=== PATIENT | male | born 1985 | race Caucasian/White ===

== ENCOUNTER 2023-04-15 16:36 | Emergency (ER) | payer OTHER, SELFPAY ==
[2023-04-15 16:46] VITALS: BP 153/99; PULSE 101; RESP 14; TEMP 36.1; O2SAT 94
[2023-04-15 17:43] VITALS: BP 158/85; RESP 16; O2SAT 98
--- NOTE | 2023-04-15 18:14 | EDS_ITS ---
HPI History of Present Illness Chief Complaint: Back Narrative Narrative: [id number] Antonio male presenting with back pain. He was hurrying to go downstairs yesterday and slipped losing his footing and his feet went up in the air and he landed on his back on the stairs and estimates he fell about 4 feet onto his back. No head injury or LOC. Patient had difficulty walking yesterday with antalgic gait. He complains of left-sided back pain and midline back pain. He states his hip does not hurt. No loss of bladder or bowel control. No saddle paresthesia. Patient denies any medical problems. He has tried Aleve and ice. He states he is unable to walk today [facility] Medical History no medical history Home Medications naproxen 500 mg tablet (Naprosyn) 500 mg PO BID PRN pain #20 tabs 04/15/23 [Rx Last Taken Unknown] oxycodone 5 mg tablet 5 mg PO TID PRN pain 3 days #12 tabs 04/15/23 [Rx Last Taken Unknown] Allergy/AdvReac Type Severity Reaction Status Date / Time No Known Allergies Allergy Verified 04/15/23 16:48 Social History Smoking Status: Current some day smoker tobacco type: cigars ROS ROS ED Constitutional Constitutional ED: Denies chills, fever(s) or sweats Eyes Eyes: Denies blurry vision or change in vision ENT ENT ED: Denies ear pain or sore throat Cardiovascular Cardiovascular: Denies chest pain, palpitations or racing heartbeat Respiratory/Chest Respiratory/Chest: Denies cough, dyspnea or sputum Gastrointestinal Gastrointestinal: Denies abdominal pain, constipation, diarrhea, nausea or vomiting Genitourinary Genitourinary ED: Denies dysuria, hematuria or urinary frequency Musculoskeletal Musculoskeletal: Reports back pain; Denies arthralgias, myalgias or neck pain Integumentary Denies abscess, Abrasions or rash Neurologic Neurologic: Denies headache(s), paresthesias or weakness Psychiatric Psychiatric: Denies anxiety, depression, suicidal ideation or suicidal thoughts Endocrine Endocrinology: Denies polydipsia or polyuria EXAM Physical Exam Const Vital Signs: 04/15/23 16:46 04/15/23 17:43 04/15/23 20:11 Temperature 97 F L Temperature Source Temporal Pulse Rate 101 H 86 Respiratory Rate 14 16 16 Blood Pressure 153/99 H 158/85 H 149/91 H Blood Pressure Mean 117 109 110 Pulse Ox 94 98 96 Oxygen Delivery Method Room Air Room Air 04/15/23 21:08 Temperature Temperature Source Pulse Rate 77 Respiratory Rate 18 Blood Pressure 139/86 H Blood Pressure Mean 103 Pulse Ox 96 Oxygen Delivery Method Positive well nourished General Appearance ED: NAD; Negative for pallor HEENT Reports moist mucous membranes Eyes PERRL and EOMs intact bilaterally Resp normal respiratory effort and clear to auscultation bilaterally Auscultation: Negative for rales, rhonchi or wheezes Cardio regular rate and regular rhythm GI normal to inspection, nondistended, normoactive bowel sounds Back/Spine Back/Spine Narrative: On spinal tenderness L3-L4. No midline spinal deformity or step-off. Pelvis is stable. Patient able to flex the left hip and right hip up off the bed. Neurovascular intact bilaterally in the lower extremities. Extremity normal to inspection Neuro oriented x3 and no sensory deficits noted Sensorium / Orientation: alert Motor Exam: strength 5/5 throughout Psych mental status grossly normal Skin no rashes or lesions noted General Skin Exam: Negative for jaundice or pallor MDM MDM MDM Narrative Medical decision making narrative: Patient presenting with back pain. On mechanical fall approximately 4 feet while running on the stairs and states he lost his footing catching air and then landing on his back. Differential includes back contusion, lumbar fracture, muscle strain. Patient's left hip is nontender and he is able to flex at about the bed. The right hip is also nontender and can flex distal to bed. The pelvis is stable. He has no abdominal pain. No evidence of bruising anywhere in his back. He is neurovascular intact throughout. Patient was given fentanyl and route to the ER. He will be given Toradol here and we will obtain a CT of the lumbar spine. Patient CT shows acute fracture of the left transverse process of L2. Discussed the case with Dr. Gan who said he can follow-up with him in office. Patient given oxycodone and Naprosyn for pain. Patient does not believe he needs to stay in the hospital nor does he need physical therapy. He is able to get up and ambulate although he has pain. Return precautions discussed. Impression: 1. Mechanical fall 2. L1 transverse process fracture Lab Data Attestation: I reviewed the patient's lab results. Radiography Diagnostic Testing: Clinical Impression(s) from Imaging Studies Lumbar Spine CT 04/15/23 18:30 IMPRESSION: Acute fracture of the left transverse process of L2. Electronically Signed: Nelson Boo MD at 20:13 EST , Discharge Plan Triage Chief Complaint: Back ED Provider: Xander Uribe Dx/Rx/DC Orders Clinical Impression: Lumbar transverse process fracture Instructions: ED Transverse Process Fracture Prescriptions: New oxycodone 5 mg tablet 5 mg PO TID PRN (Reason: pain) 3 Days Qty: 12 0RF naproxen [Naprosyn] 500 mg tablet 500 mg PO BID PRN (Reason: pain) Qty: 20 0RF Primary Care Provider: Care Physician,No Primary Referrals: Abdullahi Gan DO [Med Staff - Active Staff] - 3-5 Days Care Physician,No Primary [Primary Care Provider] - Disposition Disposition: Home, Self Care Discharge Date/Time: 04/15/23 21:37
[2023-04-15] MEDS: Ketorolac 15 MG/ML Vial IV (18:16)
--- NOTE | 2023-04-15 18:30 | CT_ITS ---
STUDY: CT LUMBAR SPINE WITHOUT CONTRAST REASON FOR EXAM: Male, 37 years old. back trauma RADIATION DOSAGE (If Supplied By Facility): CTDIvol = ( 13.85 ) mGy, DLP = ( 475.26 ) mGycm TECHNIQUE: The patient was scanned in a multi detector CT scanner. High resolution transaxial imaging was performed. Images were obtained from T12 to S1. Sagittal and coronal images were reconstructed. Individualized dose optimization techniques were used for this CT. COMPARISON: None FINDINGS: Normal lumbar lordosis. There is no substantial scoliosis. Acute slightly displaced fracture of the left transverse process of L2. Class within the transverse processes of L1 is a normal variant. L1-2: Normal endplates. Normal disc height and morphology. Normal bilateral facet joints. Normal central canal and bilateral lateral recesses. Normal bilateral intervertebral neural foramina. L2-3: Normal endplates. Normal disc height and morphology. Normal bilateral facet joints. Normal central canal and bilateral lateral recesses. Normal bilateral intervertebral neural foramina. L3-4: Normal endplates. Normal disc height and morphology. Normal bilateral facet joints. Normal central canal and bilateral lateral recesses. Normal bilateral intervertebral neural foramina. L4-5: Normal endplates. Normal disc height and morphology. Normal bilateral facet joints. Normal central canal and bilateral lateral recesses. Normal bilateral intervertebral neural foramina. L5-S1: Normal endplates. Normal disc height and morphology. Normal bilateral facet joints. Normal central canal and bilateral lateral recesses. Normal bilateral intervertebral neural foramina. Normal visualized paraspinous soft tissue structures. CT/Spine Lumbar without Contrast IMPRESSION: Acute fracture of the left transverse process of L2. Electronically Signed: Nelson Boo MD at 20:13 EST ,
[2023-04-15 20:11] VITALS: BP 149/91; PULSE 86; RESP 16; O2SAT 96
[2023-04-15 20:12] VITALS: BMI 30.2
[2023-04-15] MEDS: oxyCODONE 5 MG Tablet PO (21:02)
[2023-04-15 21:08] VITALS: BP 139/86; PULSE 77; RESP 18; O2SAT 96
== END 2023-04-15 21:37 | disposition home or self-care (01) ==
PROVIDERS: Emergency Provider Student in an Organized Health Care Education/Training Program; Visit Provider Student in an Organized Health Care Education/Training Program
DX: S32.019A Unspecified fracture of first lumbar vertebra, initial encounter for closed fracture (principal); F17.290 Nicotine dependence, other tobacco product, uncomplicated; W10.9XXA Fall (on) (from) unspecified stairs and steps, initial encounter
CPT/HCPCS: 72131; 96374; 99282; A4216